=== PATIENT | male | born 1935 | race Caucasian/White ===

== ENCOUNTER 2023-07-19 16:22 | Inpatient (IN) | payer MEDICARE, OTHER ==
[2023-07-19] MEDS ORDERED: Furosemide 40 MG/4 ML VIAL SLOW IVP SCH (18:00)
[2023-07-19 18:36] LABS: Troponin I 0.036 ng/mL (< 0.028)
[2023-07-19] MEDS ORDERED: rOPINIRole HCl 0.25 MG TAB PO SCH (22:00)
[2023-07-20 05:46] LABS: Hematocrit 35.8 % (38.8-50.0); MDiff Complete? YES; Mean Corpuscular HGB CONC 33.5 g/dL (32.0-36.0); Mean Corpuscular Hemoglobin 31.3 pg (27.0-33.0); Mean Corpuscular Volume 93.2 fl (81.2-95.1); Mean Platelet Volume 13.5 fl (7.4-10.4); Platelet Count 324 10x3/uL (150-450); RBC Distribution Width 16.8 % (11.5-14.5); Red Blood Cell (RBC) Count 3.84 10x6/uL (4.32-5.72); White Blood Cell (WBC) Count 9.5 10x3/uL (3.5-10.5)
[2023-07-20 05:51] LABS: Anion Gap 16 mmol/L (10-20); BUN (Urea Nitrogen) 23 mg/dL (8.4-25.7); Calc. Creatinine Clearance 37 mL/min (70-130); Carbon Dioxide 22 mmol/L (23-31); Chloride 105 mmol/L (98-107); Estimated GFR 43; Glucose 110 mg/dL (83-110); Potassium 4.2 mmol/L (3.5-5.1); Sodium 139 mmol/L (136-145)
[2023-07-20] MEDS: Furosemide 40 MG/4 ML VIAL SLOW IVP SCH ×2 (05:58→15:22)
[2023-07-20 06:07] VITALS: BMI 24.2
[2023-07-20 06:18] LABS: Platelet Adequacy Comment Appears Adequate; RBC Morph Comment Within Normal Limits
[2023-07-20 06:23] LABS: Band 6 % (5-11); Eosinophils 3 % (0-10); Lymphocytes 15 % (21-51); Monocytes 8 % (0-10); Neutrophil 68 % (42-75)
[2023-07-20] MEDS ORDERED: Aspirin 81 mg Enteric Coated Tablet PO SCH (09:00)
[2023-07-20] MEDS: Multivitamin W/ Minerals 1 TAB PO SCH (09:23)
[2023-07-20] MEDS: Ranolazine 500 MG ER.TAB PO SCH ×2 (09:23→21:28)
[2023-07-20] MEDS: Montelukast Sodium 10 mg Tablet PO SCH (09:23)
[2023-07-20] MEDS: Fish Oil 1,000 MG CAP PO SCH (09:23)
[2023-07-20] MEDS: CO Q-10 CAPSULE 50 MG PO SCH (09:24)
[2023-07-20] MEDS: Fluticasone Propionate Nasal Spray 16 gm Bottle NASAL SCH ×2 (09:31→21:29)
[2023-07-20] MEDS: DorzolamidE/Timolol 2%/0.5% Ophth Soln 10 ml Bottle L EYE SCH ×2 (09:33→21:29)
[2023-07-20] MEDS ORDERED: rOPINIRole HCl 0.25 MG TAB PO SCH ×2 (12:00→21:00)
[2023-07-20] MEDS: rOPINIRole HCl 0.25 MG TAB PO SCH (21:28)
[2023-07-20] MEDS: Sacubitril 24MG/Valsartan 26 MG TAB PO SCH (21:28)
[2023-07-20] MEDS: Aspirin 81 mg Enteric Coated Tablet PO SCH (21:28)
[2023-07-21 05:47] LABS: Hematocrit 35.4 % (38.8-50.0); Hemoglobin 11.9 g/dL (13.5-17.5); Mean Corpuscular HGB CONC 33.6 g/dL (32.0-36.0); Mean Corpuscular Hemoglobin 31.2 pg (27.0-33.0); Mean Corpuscular Volume 92.9 fl (81.2-95.1); Mean Platelet Volume 13.9 fl (7.4-10.4); Platelet Count 316 10x3/uL (150-450); Red Blood Cell (RBC) Count 3.81 10x6/uL (4.32-5.72); White Blood Cell (WBC) Count 7.8 10x3/uL (3.5-10.5)
[2023-07-21 05:50] LABS: MDiff Complete? YES
[2023-07-21 05:52] LABS: Anion Gap 16 mmol/L (10-20); BUN (Urea Nitrogen) 29 mg/dL (8.4-25.7); Calc. Creatinine Clearance 35 mL/min (70-130); Carbon Dioxide 25 mmol/L (23-31); Chloride 102 mmol/L (98-107); Estimated GFR 39; Glucose 95 mg/dL (83-110); Potassium 4.3 mmol/L (3.5-5.1); Sodium 139 mmol/L (136-145)
[2023-07-21] MEDS: Furosemide 40 MG/4 ML VIAL SLOW IVP SCH ×2 (06:25→13:51)
[2023-07-21 06:28] LABS: Band 9 % (5-11); Eosinophils 4 % (0-10); Lymphocytes 18 % (21-51); Monocytes 8 % (0-10); Neutrophil 61 % (42-75)
[2023-07-21 06:29] LABS: Platelet Adequacy Comment Appears Adequate; RBC Morph Comment Within Normal Limits
[2023-07-21] MEDS: Montelukast Sodium 10 mg Tablet PO SCH (08:56)
[2023-07-21] MEDS: Fish Oil 1,000 MG CAP PO SCH (08:56)
[2023-07-21] MEDS: Digoxin 0.125 MG TAB PO SCH (08:56)
[2023-07-21] MEDS: CO Q-10 CAPSULE 50 MG PO SCH (08:56)
[2023-07-21] MEDS: Ranolazine 500 MG ER.TAB PO SCH ×2 (08:57→21:30)
[2023-07-21] MEDS: Multivitamin W/ Minerals 1 TAB PO SCH (08:57)
[2023-07-21] MEDS: DorzolamidE/Timolol 2%/0.5% Ophth Soln 10 ml Bottle L EYE SCH ×2 (08:57→21:43)
[2023-07-21] MEDS: Fluticasone Propionate Nasal Spray 16 gm Bottle NASAL SCH ×2 (08:58→21:43)
[2023-07-21] MEDS: EZETIMIBE PO SCH (08:59)
[2023-07-21] MEDS: BEMPEDOIC ACID PO SCH (08:59)
[2023-07-21] MEDS: DAPAGLIFLOZIN PO SCH (08:59)
[2023-07-21] MEDS: Sacubitril 24MG/Valsartan 26 MG TAB PO SCH ×2 (09:00→21:30)
[2023-07-21] MEDS ORDERED: Empagliflozin 10 MG TAB PO SCH (09:00)
[2023-07-21] MEDS ORDERED: Benzonatate 100 MG CAP PO PRN (11:49)
[2023-07-21] MEDS: rOPINIRole HCl 0.25 MG TAB PO SCH ×2 (16:02→21:30)
[2023-07-21] MEDS: Aspirin 81 mg Enteric Coated Tablet PO SCH (21:30)
[2023-07-22 05:27] LABS: Anion Gap 16 mmol/L (10-20); BUN (Urea Nitrogen) 34 mg/dL (8.4-25.7); Calc. Creatinine Clearance 32 mL/min (70-130); Calcium 8.9 mg/dL (7.8-10.44); Carbon Dioxide 25 mmol/L (23-31); Chloride 101 mmol/L (98-107); Estimated GFR 40; Glucose 101 mg/dL (83-110); Potassium 3.9 mmol/L (3.5-5.1); Sodium 138 mmol/L (136-145)
[2023-07-22 05:30] LABS: Hematocrit 37.5 % (38.8-50.0); Hemoglobin 12.6 g/dL (13.5-17.5); Mean Corpuscular HGB CONC 33.6 g/dL (32.0-36.0); Mean Corpuscular Hemoglobin 30.9 pg (27.0-33.0); Mean Corpuscular Volume 91.9 fl (81.2-95.1); Platelet Count 317 10x3/uL (150-450); RBC Distribution Width 16.9 % (11.5-14.5); Red Blood Cell (RBC) Count 4.08 10x6/uL (4.32-5.72)
[2023-07-22 05:35] LABS: MDiff Complete? YES
[2023-07-22 05:55] LABS: Platelet Adequacy Comment Appears Adequate; RBC Morph Comment Within Normal Limits
[2023-07-22 05:56] LABS: Band 8 % (5-11); Eosinophils 5 % (0-10); Lymphocytes 22 % (21-51); Monocytes 8 % (0-10); Neutrophil 57 % (42-75)
[2023-07-22] MEDS: Sacubitril 24MG/Valsartan 26 MG TAB PO SCH ×2 (06:01→21:02)
[2023-07-22] MEDS: Ranolazine 500 MG ER.TAB PO SCH ×2 (06:01→21:02)
[2023-07-22] MEDS: Montelukast Sodium 10 mg Tablet PO SCH (06:02)
[2023-07-22] MEDS: Digoxin 0.125 MG TAB PO SCH (06:02)
[2023-07-22] MEDS: Furosemide 40 MG/4 ML VIAL SLOW IVP SCH ×2 (06:07→17:33)
[2023-07-22] MEDS: DorzolamidE/Timolol 2%/0.5% Ophth Soln 10 ml Bottle L EYE SCH ×2 (06:37→21:04)
[2023-07-22] MEDS ORDERED: Iopamidol 300 61% 100 ML VIAL FS ONE (09:46)
[2023-07-22] MEDS: CO Q-10 CAPSULE 50 MG PO SCH (10:00)
[2023-07-22] MEDS: Fish Oil 1,000 MG CAP PO SCH (10:00)
[2023-07-22] MEDS: Multivitamin W/ Minerals 1 TAB PO SCH (10:00)
[2023-07-22] MEDS: Fluticasone Propionate Nasal Spray 16 gm Bottle NASAL SCH ×2 (10:00→21:04)
[2023-07-22] MEDS ORDERED: Heparin 10,000 UNITS/ 10 ML VIAL ONE (11:17)
[2023-07-22] MEDS ORDERED: Nitroglycerin 50 MG/250 ML BOT 250 ML ONE (11:17)
[2023-07-22] MEDS ORDERED: Midazolam HCl 2 mg/2 ml Vial ONE (11:18)
[2023-07-22] MEDS ORDERED: Adenosine 6 MG/2 ML VIAL ONE (11:18)
[2023-07-22] MEDS ORDERED: Atropine Sulfate 1 mg/1 ml Vial ONE (11:18)
[2023-07-22] MEDS ORDERED: fentaNYL 50 mcg/mL 1 mL Vial ONE (11:18)
[2023-07-22] MEDS ORDERED: Clopidogrel Bisulfate 300 MG TAB ONE (12:56)
[2023-07-22] MEDS ORDERED: Acetaminophen 325 MG TAB PO PRN (13:00)
[2023-07-22] MEDS ORDERED: Sodium Chloride 0.9% 200 ML IV PRN (13:00)
[2023-07-22] MEDS ORDERED: Nitroglycerin 0.4 MG TAB (25 Tab Bottle) SL PRN (13:00)
[2023-07-22] MEDS ORDERED: Sodium Chloride 0.9% 1,000 ML IV SCH (13:00)
[2023-07-22] MEDS ORDERED: Ondansetron PF 4 MG/2 ML Vial ONE (13:31)
[2023-07-22] MEDS: EZETIMIBE PO SCH (17:22)
[2023-07-22] MEDS: DAPAGLIFLOZIN PO SCH (17:22)
[2023-07-22] MEDS: BEMPEDOIC ACID PO SCH (17:22)
[2023-07-22] MEDS: rOPINIRole HCl 0.25 MG TAB PO SCH ×2 (17:33→21:07)
[2023-07-22] MEDS ORDERED: BEMPEDOIC ACID PO SCH (20:30)
[2023-07-22] MEDS ORDERED: EZETIMIBE PO SCH (20:30)
[2023-07-22] MEDS ORDERED: DAPAGLIFLOZIN PO SCH (20:30)
[2023-07-22] MEDS: Aspirin 81 mg Enteric Coated Tablet PO SCH (21:02)
[2023-07-23 05:48] LABS: Hematocrit 39.3 % (38.8-50.0); Hemoglobin 13.1 g/dL (13.5-17.5); MDiff Complete? YES; Mean Corpuscular HGB CONC 33.3 g/dL (32.0-36.0); Mean Corpuscular Volume 93.1 fl (81.2-95.1); Platelet Count 348 10x3/uL (150-450); Red Blood Cell (RBC) Count 4.22 10x6/uL (4.32-5.72); White Blood Cell (WBC) Count 8.5 10x3/uL (3.5-10.5)
[2023-07-23] MEDS: Furosemide 40 MG/4 ML VIAL SLOW IVP SCH (05:49)
[2023-07-23 05:55] LABS: Anion Gap 17 mmol/L (10-20); BUN (Urea Nitrogen) 31 mg/dL (8.4-25.7); Calc. Creatinine Clearance 31 mL/min (70-130); Carbon Dioxide 26 mmol/L (23-31); Chloride 100 mmol/L (98-107); Estimated GFR 39; Glucose 91 mg/dL (83-110); Potassium 4.6 mmol/L (3.5-5.1); Sodium 138 mmol/L (136-145)
[2023-07-23 06:12] LABS: Large Platelets SLIGHT (None Seen); Platelet Adequacy Comment Appears Adequate; RBC Morph Comment Within Normal Limits
[2023-07-23 06:15] LABS: Band 9 % (5-11); Eosinophils 6 % (0-10); Lymphocytes 21 % (21-51); Monocytes 8 % (0-10); Neutrophil 56 % (42-75); Nucleated RBC (Manual Ct) 1 % (0)
[2023-07-23] MEDS ORDERED: Clopidogrel Bisulfate 75 MG TAB PO SCH (09:00)
[2023-07-23] MEDS: CO Q-10 CAPSULE 50 MG PO SCH (11:20)
[2023-07-23] MEDS: Montelukast Sodium 10 mg Tablet PO SCH (11:20)
[2023-07-23] MEDS: Multivitamin W/ Minerals 1 TAB PO SCH (11:20)
[2023-07-23] MEDS: Fish Oil 1,000 MG CAP PO SCH (11:20)
[2023-07-23] MEDS: Sacubitril 24MG/Valsartan 26 MG TAB PO SCH (11:21)
[2023-07-23] MEDS: Ranolazine 500 MG ER.TAB PO SCH (11:21)
[2023-07-23] MEDS: Digoxin 0.125 MG TAB PO SCH (11:21)
[2023-07-23] MEDS: Fluticasone Propionate Nasal Spray 16 gm Bottle NASAL SCH (11:23)
[2023-07-23] MEDS: DorzolamidE/Timolol 2%/0.5% Ophth Soln 10 ml Bottle L EYE SCH (11:24)
[2023-07-23 12:22] VITALS: TEMP 97.9
[2023-07-23 13:27] VITALS: BP 91/53
[2023-07-23] MEDS ORDERED: Furosemide 20 MG TAB PO SCH (14:00)
== END 2023-07-23 13:32 | disposition home or self-care (01) | DRG 321 ==
LOC: CSHTELE 16:22 → UNDOADMOB 16:22 → CSHTELE 16:55 → OBSVTOIN 17:35
PROVIDERS: ADMIT Hospitalist; ATTEND Internal Medicine
PROC: 4A023N7 Measurement of Cardiac Sampling and Pressure, Left Heart, Percutaneous Approach (ICD-10-PCS; principal; 2023-07-22)
PROC: 027034Z Dilation of Coronary Artery, One Artery with Drug-eluting Intraluminal Device, Percutaneous Approach (ICD-10-PCS; 2023-07-22)
PROC: B2111ZZ Fluoroscopy of Multiple Coronary Arteries using Low Osmolar Contrast (ICD-10-PCS; 2023-07-22)
DX: I25.10 Atherosclerotic heart disease of native coronary artery without angina pectoris (principal); I50.43 Acute on chronic combined systolic (congestive) and diastolic (congestive) heart failure; I24.9 Acute ischemic heart disease, unspecified; N17.9 Acute kidney failure, unspecified; I11.0 Hypertensive heart disease with heart failure; I35.0 Nonrheumatic aortic (valve) stenosis; I25.2 Old myocardial infarction; Z95.5 Presence of coronary angioplasty implant and graft; Z66 Do not resuscitate; E78.5 Hyperlipidemia, unspecified; I25.5 Ischemic cardiomyopathy; N40.0 Benign prostatic hyperplasia without lower urinary tract symptoms; K21.9 Gastro-esophageal reflux disease without esophagitis; Z95.810 Presence of automatic (implantable) cardiac defibrillator; N28.9 Disorder of kidney and ureter, unspecified
CPT/HCPCS: 36415; 71045; 80048; 80053; 83690; 83880; 84145; 84484; 85025; 92928; 92978; 93005; 93306; 93458; 96365; 99152; 99153; C1753; C1760; C1769; C1874; C1887; C9600; J0153; J0461; J0696; J1644; J1650; J1940; J2250; J2405; J3010; J3490; J7050; Q9967